=== PATIENT | female | born 1995 | race Caucasian/White ===

== ENCOUNTER 2019-03-14 20:23 | Emergency (ER) | payer OTHER ==
[~2019-03-14] VITALS: Ht 152.4 cm; Wt 66.7 kg
[2019-03-14 20:26] VITALS: BP 145/101; Ht 152.4 cm; Wt 66.7 kg
== END 2019-03-14 21:25 | disposition home or self-care (01) ==
LOC: ED 20:23
DX: S50.861A Insect bite (nonvenomous) of right forearm, initial encounter (principal); Z88.0 Allergy status to penicillin; W57.XXXA Bitten or stung by nonvenomous insect and other nonvenomous arthropods, initial encounter; Y93.89 Activity, other specified; Y92.89 Other specified places as the place of occurrence of the external cause; Y99.8 Other external cause status